=== PATIENT | male | born 1965 | race Caucasian/White ===

== ENCOUNTER → 2019-10-30 | Outpatient (CLI) | payer OTHER ==
[~2019-10-30] MED LIST: CYCLOBENZAPRINE10 MG PO; TYLENOL WITH C1 EACH PO
--- NOTE | 2019-10-30 11:02 | Diagnostic Imaging Report ---
EXAM: Thyroid Ultrasound INDICATION: Thyroid nodule. ^[id number] ^[id number] ^LEFT THYROID NODUILE COMPARISON: None TECHNIQUE: Transverse and sagittal images were obtained of the thyroid gland. FINDINGS: Thyroid gland: Size: Right lobe: 5.6 x 1.5 x 1.9 cm, Normal in size Left lobe: 4.8 x 1.8 x 1.9 cm, Normal in size Isthmus: 0.4 cm, Normal in size Appearance: Homogeneous echotexture without increased vascularity Masses/Nodules: Right lobe: 1.4 x 0.9 x 1.3 cm mixed solid and cystic (1 pt) nodule in the inferior pole with smooth margin (0 pts), [id number] (0 pts), hypoechoic (2 pts), and no calcifications (0 pts). TR3a (<1.5 cm): No follow-up. Left lobe: 1.3 x 0.9 x 1.0 cm cystic (0 pts) nodule in the superior pole with smooth margin (0 pts), [id number] (0 pts), hypoechoic (2 pts), and no calcifications (0 pts). TR2, Not Suspicious: No FNA. 0.7 x 0.5 x 0.7 cm cystic (0 pts) nodule in the superior pole with smooth margin (0 pts), [id number] (0 pts), hypoechoic (2 pts), and no calcifications (0 pts). TR2, Not Suspicious: No FNA. Parathyroid: No focal parathyroid masses. IMPRESSION: Right and left thyroid nodules/cysts as described above. TI-RADS Lexicon: TR1, Benign: No FNA TR2, Not Suspicious: No FNA. TR3a (<1.5 cm): No follow-up. TR3b (1.5-2.5 cm), Mildly Suspicious: Follow at 1, 3, 5 years. TR3c (>2.5 cm), Mildly Suspicious: FNA. TR4a (<1.0 cm): No follow-up. TR4b (1.0-1.5 cm), Moderately Suspicious: Follow at 1, 2, 3, 5 years. TR4c (>1.5 cm), Moderately Suspicious: FNA. TR5a (<0.5 cm): No follow-up. TR5b (0.5-1.0 cm), Highly Suspicious: Follow at 1, 2, 3, 4, 5 years. TR5c (>1.0 cm), Highly Suspicious: FNA. *Rebiopsy if new suspicious features *No recommendation at this time for significant interval growth. Nodule Characteristics: * Benign features: cystic, hyperechoic, comet-tail artifact, complete halo * Minor suspicious features: solid, hypoechoic, other calcifications * Major suspicious features: microcalcifications, marked hypoechoic (less than strap muscle), suspicious lymph nodes, taller than wide, lobulated or ill-defined margins. Literature: ACR Thyroid Imaging, Reporting and Data System (TI-RADS): White Paper of the ACR TI-RADS Committee. J Am Mina Radiol 2017. Signed by: Dr. Antoni Rock M.D. on 10/30/2019 10:59 AM
--- NOTE | 2019-10-30 11:06 | Diagnostic Imaging Report ---
Exam: Ultrasound extremity soft tissue nonvascular History: Nodule of skin in the right lower back region. Findings: Transverse and sagittal ultrasonographic imaging was obtained of the right lower back region at the palpable site with grayscale and color Doppler imaging. No abnormal fluid collection. 2.5 x 1.3 x 1.7 cm heterogeneous mass at the palpable site in the right lower back region with ultrasonographic imaging characteristics similar to the adjacent fat. This is located 1 cm deep to the skin surface. Impression: 2.5 x 1.3 x 1.7 cm heterogeneous mass at the palpable site in the right lower back region with ultrasonographic imaging characteristics similar to the adjacent fat. This is may be due to a lipoma. If indicated MRI may be of benefit. Signed by: Dr. Antoni Rock M.D. on 10/30/2019 11:03 AM
== END ==
LOC: US 09:18
PROVIDERS: ATTEND Family Medicine
DX: E04.1 Nontoxic single thyroid nodule (principal)
CPT/HCPCS: 76536; 76882